=== PATIENT | female | born 2000 | race Caucasian/White ===

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

== ENCOUNTER 2020-04-17 08:05 | Emergency (ER) | payer OTHER ==
[~2020-04-17 08:05] MED LIST: CEFUROXIME500 MG PO; COLACE 100MG C100 MG PO; CYCLOBENZAPRINE10 MG PO; FERROUS SULFAT325 MG PO; IBUPROFEN600 MG PO; JUNEL 1 MG-201 EACH PO; JUNEL BIRTH CONTROL PO; LORTAB 5-325 M1 EACH PO; MACROBID 100 M100 MG PO; PRENATAL TABLE1 EAC1 PO; TESSALON PERLE100 MG PO; TRAMADOL HCL50 MG PO; ULTRAM50 MG PO; VENTOLIN HFA 66.7 GM INH; ZITHROMAX250 MG PO; ZOFRAN ODT 4 MG4 MG SL
[2020-04-17 08:30] LABS: HEMOGLOBIN 14.9 gm/dl (12.3-15.3); RED BLOOD COUNT 5.16 M/UL (4.00-5.10); WHITE BLOOD COUNT 6.6 K/UL (4.5-11.0)
[2020-04-17 08:58] LABS: BUN/CREATININE RATIO 11 (0-10)
[2020-04-17] MEDS ORDERED: ZOFRAN 4 MG TAB4 MG PO (11:16)
== END 2020-04-17 11:50 | disposition home or self-care (01) ==
LOC: ER1 08:05
PROVIDERS: Emergency Medicine
DX: S13.9XXA Sprain of joints and ligaments of unspecified parts of neck, initial encounter (principal); R42 Dizziness and giddiness; R00.2 Palpitations; R51.9 Headache, unspecified; D64.9 Anemia, unspecified; Z90.49 Acquired absence of other specified parts of digestive tract; V89.2XXA Person injured in unspecified motor-vehicle accident, traffic, initial encounter
CPT/HCPCS: 36415; 70450; 71045; 72125; 80053; 82550; 82553; 83874; 84484; 84703; 85025; 93005; 93242; 99285